=== PATIENT | female | born 1965 | race Caucasian/White ===

== ENCOUNTER 2020-06-21 14:34 | Emergency (ER) | payer SELFPAY ==
--- NOTE | 2020-06-21 15:21 | RAD ---
RIGHT KNEE FOUR VIEWS: 06/21/20 HISTORY: Fall with injury. There are arthritic changes of the knee without signs of fracture, dislocation, or any significant red int effusion. The bones do appear demineralized. IMPRESSION: Arthritic changes of the knee. POS: [id number]
[2020-06-21] MEDS ORDERED: Acetaminophen/Codeine 30-300mg Tablet ONE (15:32)
[2020-06-21] MEDS ORDERED: Ketorolac Tromethamine 60 MG/2 ML VIAL ONE (15:32)
== END 2020-06-21 16:05 | disposition home or self-care (01) ==
LOC: MADERS 14:34
DX: S86.911A Strain of unspecified muscle(s) and tendon(s) at lower leg level, right leg, initial encounter (principal); E11.9 Type 2 diabetes mellitus without complications; E03.9 Hypothyroidism, unspecified; E78.5 Hyperlipidemia, unspecified; I10 Essential (primary) hypertension; E66.9 Obesity, unspecified; Z79.4 Long term (current) use of insulin; Z79.899 Other long term (current) drug therapy; W18.09XA Striking against other object with subsequent fall, initial encounter
CPT/HCPCS: 96372; J1885

== ENCOUNTER 2022-02-26 10:15 | Emergency (ER) | payer SELFPAY ==
[2022-02-26] MEDS ORDERED: Lactated Ringer's 1,000 ML ONE ×2 (11:06→11:42)
[2022-02-26] MEDS ORDERED: Benzonatate 100 MG CAP ONE (11:06)
[2022-02-26] MEDS ORDERED: Ondansetron PF 4 MG/2 ML Vial ONE (11:06)
[2022-02-26 11:29] LABS: Phosphorus 7.4 mg/dL (2.3-4.7)
[2022-02-26 11:30] LABS: ALT (SGPT) 11 U/L (8-55); AST (SGOT) 8 U/L (5-34); Albumin 4.4 g/dL (3.5-5.0); Alkaline Phosphatase 122 U/L (40-110); Anion Gap 35 mmol/L (10-20); BUN (Urea Nitrogen) 27 mg/dL (9.8-20.1); Bilirubin, Total 0.2 mg/dL (0.2-1.2); CK (CPK) 24 U/L (29-168); Calc. Creatinine Clearance 0 mL/min (70-130); Calcium 9.6 mg/dL (7.8-10.44); Chloride 95 mmol/L (98-107); Estimated GFR 22; Globulin 4.4 g/dL (2.4-3.5); Lipase 46 U/L (8-78); Magnesium 2.7 mg/dL (1.6-2.6); Potassium 4.5 mmol/L (3.5-5.1); Protein, Total 8.8 g/dL (6.0-8.3); Sodium 134 mmol/L (136-145)
[2022-02-26 11:35] LABS: Base Excess-Venous -23.6 mmol/L (-2.0 to 3.0); Bicarbonate (HCO3v) 7.4 mmol/L (22.0-28.0); Calcium, Ionized 1.16 mmol/L (1.15-1.33); Chloride 106 mmol/L (98-107); Hemoglobin - Calc 19.2 g/dL (12.0-16.0); Potassium 4.5 mmol/L (3.5-5.1); Sodium 134 mmol/L (138-145); T. Carbon Dioxide 8.4 mmol/L (22.0-28.0); vO2 Saturation-calc 62.3 % (60.0-85.0)
[2022-02-26 11:36] LABS: Band 4 % (5-11); Hemoglobin 15.3 g/dL (12.0-16.0); Lymphocytes 4 % (21-51); MDiff Complete? YES; Mean Corpuscular Hemoglobin 28.1 pg (27.0-31.0); Mean Corpuscular Volume 93.7 fl (78.0-98.0); Monocytes 6 % (0-10); Neutrophil 86 % (42-75); Platelet Count 510 10x3/uL (130-400); Platelet Morphology Comment Appears Increased; RBC Distribution Width 13.1 % (11.5-14.5); RBC Morphology Normal; Red Blood Cell (RBC) Count 5.44 mill/uL (4.20-5.40); White Blood Cell (WBC) Count 21.1 10x3/uL (4.8-10.8)
[2022-02-26 11:38] LABS: Carbon Dioxide 9 mmol/L (22-29); Glucose 943 mg/dL (70-105)
[2022-02-26] MEDS ORDERED: NS 0.9% w/ 20 MEQ KCL 2,000 ML ONE (11:42)
[2022-02-26] MEDS ORDERED: Sodium Chloride 0.9% 100 ML ONE (11:54)
[2022-02-26] MEDS ORDERED: Insulin Regular 300 UNITS/3 ML VIAL ONE (11:54)
[2022-02-26 12:30] LABS: Bilirubin Small (Negative); Blood, Urine Trace (Negative); Clarity Clear (Clear); Glucose, Urine (Dipstick) 500 mg/dL (Negative); Ketone, Urine 80 mg/dL (Negative); Leukocyte Negative (Negative); Nitrite Negative (Negative); Protein, Urine (Dipstick) Trace mg/dL (Neg-Trace); Specific Gravity, Urine 1.015 (1.005-1.030); Urobilinogen 0.2 mg/dL (Less than 2)
[2022-02-26] MEDS ORDERED: Cefepime 2 GM VIAL ONE (13:11)
[2022-02-26 13:22] LABS: SARS-CoV-2 NAA Rapid Test Not Detected (NotDetected)
[2022-02-26] MEDS ORDERED: Sodium Chloride 0.9% 250 ML 250 ML ONE (13:25)
[2022-02-26 13:27] LABS: RBC/HPF 0-3 HPF (0-3); WBC/HPF 21-50 HPF (0-3)
[2022-02-26 13:28] LABS: Bacteria/HPF 1+ HPF (None Seen); Yeast-All Forms Rare HPF (None Seen)
== END 2022-02-26 14:50 | disposition short-term general hospital (02) ==
LOC: MADERS 10:15
DX: N17.9 Acute kidney failure, unspecified (principal); E11.10 Type 2 diabetes mellitus with ketoacidosis without coma; B37.31 Acute candidiasis of vulva and vagina; E83.39 Other disorders of phosphorus metabolism; D72.829 Elevated white blood cell count, unspecified; E03.9 Hypothyroidism, unspecified; E78.5 Hyperlipidemia, unspecified; E66.9 Obesity, unspecified; I10 Essential (primary) hypertension; Z79.4 Long term (current) use of insulin; Z20.822 Contact with and (suspected) exposure to COVID-19; Z79.899 Other long term (current) drug therapy
CPT/HCPCS: 71045; 80053; 81003; 81015; 82010; 82330; 82550; 82803; 83605; 83690; 83735; 84100; 84443; 85025; 87040; 87086; 87804; 93005; 94760; 96361; 96365; 96366; 96368; 96375; J0692; J1815; J2405; J3370; J3480; J7050; J7120; U0002